=== PATIENT | female | born 1975 | race American Indian/Alaskan Native ===

== ENCOUNTER 2018-03-16 00:20 | Emergency (ER) | payer OTHER ==
[2018-03-16] MEDS ORDERED: ATIVAN ONE (00:37)
[2018-03-16] MEDS ORDERED: HALDOL ONE (00:37)
[2018-03-16] MEDS ORDERED: HALDOL IM PRN (00:37)
--- NOTE | 2018-03-16 00:38 | Emergency Department Report ---
ED General Adult HPI - General Chief complaint: Wound/Laceration Stated complaint: ETOH/HAND LAC Time Seen by Provider: 03/16/18 00:35 Source: patient, EMS (ems notes not available at time of chart dictation), RN notes reviewed Mode of arrival: Stretcher Limitations: Other (patient is intoxicated) - History of Present Illness Initial comments: This is a 42-year-old female who is unknown to this provider who is brought to the hospital by police and local EMS. As per verbal report from EMS, there was no preceding head trauma, patient got very drunk and began thinking about a family member. She punched her left hand through a glass window. The patient is intoxicated and cannot describe the nature of her symptoms, exacerbating or relieving factors or radiation. The patient did not respond to show of force, or verbal de-escalation techniques. Therefore, she required Haldol, Ativan for medical workup to exclude toxic overdose and metabolic cause of psychiatric symptoms. No additional information is available at this time. -: This evening Radiation: other (per hpi) Quality: other (per hpi) Consistency: other (per hpi) Improves with: other (per hpi) Worsens with: other (per hpi) Associated Symptoms: other (per hpi) - Related Data Allergies Allergy/AdvReac Type Severity Reaction Status Date / Time No Known Allergies Allergy Verified 03/16/18 00:46 ED Review of Systems ROS: Stated complaint: ETOH/HAND LAC Other details as noted in HPI Comment: Unobtainable due to pts medical conditions ED Past Medical Hx - Past Medical History Previous Medical History?: No - Social History Smoking Status: Unknown if ever smoked Substance Use Type: Alcohol ED Physical Exam - General Limitations: Other (intoxication) General appearance: alert, appears intoxicated, in distress, obese - Head Head exam: Present: atraumatic, normocephalic - Eye Eye exam: Present: normal appearance, PERRL, EOMI. Absent: nystagmus - ENT ENT exam: Present: normal exam, normal orophraynx, mucous membranes moist, normal external ear exam - Neck Neck exam: Present: normal inspection, full ROM - Respiratory Respiratory exam: Present: normal lung sounds bilaterally. Absent: respiratory distress - Cardiovascular Cardiovascular Exam: Present: regular rate, normal rhythm, normal heart sounds. Absent: bradycardia, tachycardia, irregular rhythm, systolic murmur, diastolic murmur, rubs, gallop - GI/Abdominal GI/Abdominal exam: Present: soft, normal bowel sounds. Absent: distended, tenderness, guarding, rebound, rigid, pulsatile mass - Extremities Exam Extremities exam: Present: normal capillary refill, other (2+ pulses noted in the bilateral upper, lower extremities. On the left second digit, at the dorsal aspect of the PIP joint, there is a 1.5 cm laceration noted. There is no obvious arterial bleeding, no foreign bodies noted.). Absent: normal inspection, tenderness, pedal edema, joint swelling, calf tenderness - Back Exam Back exam: Present: normal inspection, full ROM. Absent: tenderness, CVA tenderness (R), paraspinal tenderness, vertebral tenderness - Neurological Exam Neurological exam: Present: alert, other (5 out of 5 strength upper, lower extremities bilaterally. Sensation intact to light touch upper, lower extremities. There is no facial injury, the tongue is midline, extraocular movements are intact. Unable to assess sensation, or remainder of cranial nerves secondary to alcohol intoxication and patient's lack of cooperation.). Absent: motor sensory deficit - Psychiatric Psychiatric exam: Present: agitated, anxious, suicidal ideation - Skin Skin exam: Present: warm, dry, intact, normal color. Absent: rash - Laceration /Wound Repair Left Dorsal Finger Wound Location: upper extremity Wound Length (cm): 1 Wound's Depth, Shape: linear Wound Explored: clean Irrigated w/ Saline (ccs): 500 Anesthesia: 1% Lidocaine Volume Anesthetic (ccs): 4 Wound Debrided: minimal Suture Size/Type: 4:0 (monofilament) Number of Sutures: 5 Layer Closure?: No Sterile Dressing Applied?: Yes Progress: Laceration washed with sterile saline and adequate pressure. Wound is explored under bloodless field, no foreign bodies noted. 5 interrupted 4-0 monofilament sutures placed with good cosmesis and approximation. The patient tolerated the procedure well. ED Medical Decision Making - Lab Data Result diagrams: 03/16/18 00:57 03/16/18 00:57 Lab Results 03/16/18 03/16/18 03/16/18 Range/Units 00:57 00:57 00:57 WBC (4.5-11.0) K/mm3 RBC (3.65-5.03) M/mm3 Hgb (10.1-14.3) gm/dl Hct (30.3-42.9) % MCV (79-97) fl MCH (28-32) pg MCHC (30-34) % RDW (13.2-15.2) % Plt Count (140-440) K/mm3 Sodium 146 H (137-145) mmol/L Potassium 3.7 (3.6-5.0) mmol/L Chloride 107.2 H (98-107) mmol/L Carbon Dioxide 25 (22-30) mmol/L Anion Gap 18 mmol/L BUN 8 (7-17) mg/dL Creatinine 0.6 L (0.7-1.2) mg/dL Estimated GFR > 60 ml/min BUN/Creatinine Ratio 13 % Glucose 113 H (65-100) mg/dL Calcium 8.7 (8.4-10.2) mg/dL Total Creatine Kinase (30-135) units/L HCG, Quant (0-4) mIU/mL Salicylates < 0.3 L (2.8-20.0) mg/dL Acetaminophen < 5.0 L (10.0-30.0) ug/mL Plasma/Serum Alcohol (0-0.07) % 03/16/18 03/16/18 03/16/18 Range/Units 00:57 00:57 00:57 WBC 5.1 (4.5-11.0) K/mm3 RBC 3.79 (3.65-5.03) M/mm3 Hgb 10.6 (10.1-14.3) gm/dl Hct 32.4 (30.3-42.9) % MCV 86 (79-97) fl MCH 28 (28-32) pg MCHC 33 (30-34) % RDW 16.7 H (13.2-15.2) % Plt Count 335 (140-440) K/mm3 Sodium (137-145) mmol/L Potassium (3.6-5.0) mmol/L Chloride (98-107) mmol/L Carbon Dioxide (22-30) mmol/L Anion Gap mmol/L BUN (7-17) mg/dL Creatinine (0.7-1.2) mg/dL Estimated GFR ml/min BUN/Creatinine Ratio % Glucose (65-100) mg/dL Calcium (8.4-10.2) mg/dL Total Creatine Kinase 122 (30-135) units/L HCG, Quant (0-4) mIU/mL Salicylates (2.8-20.0) mg/dL Acetaminophen (10.0-30.0) ug/mL Plasma/Serum Alcohol 0.35 H (0-0.07) % 03/16/18 Range/Units 00:57 WBC (4.5-11.0) K/mm3 RBC (3.65-5.03) M/mm3 Hgb (10.1-14.3) gm/dl Hct (30.3-42.9) % MCV (79-97) fl MCH (28-32) pg MCHC (30-34) % RDW (13.2-15.2) % Plt Count (140-440) K/mm3 Sodium (137-145) mmol/L Potassium (3.6-5.0) mmol/L Chloride (98-107) mmol/L Carbon Dioxide (22-30) mmol/L Anion Gap mmol/L BUN (7-17) mg/dL Creatinine (0.7-1.2) mg/dL Estimated GFR ml/min BUN/Creatinine Ratio % Glucose (65-100) mg/dL Calcium (8.4-10.2) mg/dL Total Creatine Kinase (30-135) units/L HCG, Quant < 2 (0-4) mIU/mL Salicylates (2.8-20.0) mg/dL Acetaminophen (10.0-30.0) ug/mL Plasma/Serum Alcohol (0-0.07) % - Radiology Data Radiology results: report reviewed, image reviewed x-ray of the left hand demonstrates no foreign body. - Medical Decision Making Differential diagnosis, including but not limited to: Finger laceration, alcohol intoxication, mood disorder Assessment and plan: 42-year-old female with self injurious behavior who does not have decision-making capacity, no other evidence of overdose, placed on a 1013. Left distal finger splints is applied, patient should have sutures taken out in 4-5 days, psychiatric consultation has been requested, at this point in time, there is not appear to be any immediate medical contraindication to psychiatric admission, evaluation and consultation at this time. Critical care attestation.: If time is entered above; I have spent that time in minutes in the direct care of this critically ill patient, excluding procedure time. ED Disposition Clinical Impression: Alcohol intoxication, Finger laceration Disposition: DC/TX-65 PSY HOSP/PSY UNIT Is pt being admited?: No Does the pt Need Aspirin: No Condition: Good Referrals: PRIMARY CARE, [Primary Care Provider] - 3-5 Days
[2018-03-16] MEDS: ATIVAN IM PRN (00:40)
[2018-03-16] MEDS ORDERED: GEODON IM ONE (00:52)
[2018-03-16] MEDS ORDERED: NACL 0.9% 500 ML IR ONE (01:05)
[2018-03-16 01:09] LABS: Hematocrit 32.4 % (30.3-42.9); Hemoglobin 10.6 gm/dl (10.1-14.3); Mean Corpuscular HGB Conc 33 % (30-34); Mean Corpuscular Hemoglobin 28 pg (28-32); Mean Corpuscular Volume 86 fl (79-97); Platelet Count 335 K/mm3 (140-440); Red Blood Count 3.79 M/mm3 (3.65-5.03); Red Cell Distribution Width 16.7 % (13.2-15.2)
[2018-03-16 01:23] LABS: BUN/Creatinine Ratio 13; Blood Urea Nitrogen 8 mg/dL (7-17); Calcium 8.7 mg/dL (8.4-10.2); Hemolysis Index 0
[2018-03-16] MEDS ORDERED: ANTIBIOTIC OINT TP STA (01:25)
--- NOTE | 2018-03-16 02:30 | XRay Report ---
FINAL REPORT EXAM: XR HAND 2V LT HISTORY: left hand lac TECHNIQUE: Three views of the left hand were submitted. FINDINGS: There is no evidence of fracture or dislocation. There is no evidence of radiopaque foreign body. The wrist joint does not show any acute changes. IMPRESSION: No acute findings.
[2018-03-16] MEDS ORDERED: BOOSTRIX IM ONE ×2 (02:42→06:24)
[2018-03-16 14:50] LABS: Amphetamine Screen,Urine PRESUMPTIVE NEGATIVE; Benzodiazepines Screen,Urine PRESUMPTIVE NEGATIVE; Cannabinoid Screen,Urine PRESUMPTIVE NEGATIVE; Cocaine Screen,Urine PRESUMPTIVE NEGATIVE; Methadone Screen,Urine PRESUMPTIVE NEGATIVE; Opiate Screen,Urine PRESUMPTIVE NEGATIVE
[2018-03-16 14:57] LABS: Bacteria,Urine 1+ /HPF (Negative); Bilirubin,Urine NEG (Negative); Blood,Urine NEG (Negative); Color,Urine Yellow (Yellow); Mucus,Urine 2+ /HPF; Urobilinogen,Urine < 2.0 mg/dL (<2.0)
--- NOTE | 2018-03-16 23:49 | Consultation ---
History of Present Illness - Reason for Consult Consult date: 03/16/18 Reason for consult: psychiatric evaluation - Chief Complaint Chief complaint: "I drank too much." - History of Present Psychiatric Illness Ms. Freeman is a 42-year-old female seen for psychiatric evaluation in the ER. Per the record, she got very drunk and began thinking about a family member. She punched her left hand through a glass window. Her BAL was 0.35. She was agitated on arrival to the ED and was given Haldol and Ativan. She denies depression/anxiety/psychotic symptoms. She denies suicidal or homicidal ideation. She denies a history of edith. She reports drinking every weekend. She states she cannot just have 2. She reports being shaky and having sweats every weekend when she is coming off alcohol. She denies illicit substance use. 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 Medications and Allergies Allergies Allergy/AdvReac Type Severity Reaction Status Date / Time No Known Allergies Allergy Verified 03/16/18 00:46 Active Meds: Active Medications Haloperidol Lactate (Haldol) 5 mg IM Q6HR PRN PRN Reason: Agitation Last Admin: 03/16/18 01:00 Dose: 5 mg Lorazepam (Ativan) 2 mg IM Q4HR PRN PRN Reason: Agitation Last Admin: 03/16/18 00:40 Dose: 2 mg Past psychiatric history - Past Medical History Past Medical History: hypertension, other (on lisinopril) - past Psychiatric treatment and history Psych: Addictions psychiatric treatment history: denies a history of suicide attempts or hospitalizations - Social History Social history: lives with family Mental Status Exam - Vital signs Last Vital Signs Temp 97.9 F 03/16/18 08:30 Pulse 94 H 03/16/18 08:30 Resp 18 03/16/18 18:00 BP 153/79 03/16/18 08:30 Pulse Ox 96 03/16/18 18:00 - Exam Orientation: time, place, person Affect: normal Mood: anxious Thought content: other (no SI/HI) Thought Process: Intact Perceptions: none Speech: normal rate and pattern Concentration: focused Motor activity: normal Level of consciousness: alert Memory: Intact Sleep Symptoms: None (c/o night sweats) Appetite: decreased Interaction: cooperative Results Result Diagrams: 03/16/18 00:57 03/16/18 00:57 Abnormal lab results 03/16/18 03/16/18 03/16/18 Range/Units 00:57 00:57 00:57 RDW (13.2-15.2) % Sodium 146 H (137-145) mmol/L Chloride 107.2 H (98-107) mmol/L Creatinine 0.6 L (0.7-1.2) mg/dL Glucose 113 H (65-100) mg/dL U Epithel Cells (Auto) (0-13.0) /HPF Salicylates < 0.3 L (2.8-20.0) mg/dL Acetaminophen < 5.0 L (10.0-30.0) ug/mL Plasma/Serum Alcohol (0-0.07) % 03/16/18 03/16/18 03/16/18 Range/Units 00:57 00:57 14:23 RDW 16.7 H (13.2-15.2) % Sodium (137-145) mmol/L Chloride (98-107) mmol/L Creatinine (0.7-1.2) mg/dL Glucose (65-100) mg/dL U Epithel Cells (Auto) 14.0 H (0-13.0) /HPF Salicylates (2.8-20.0) mg/dL Acetaminophen (10.0-30.0) ug/mL Plasma/Serum Alcohol 0.35 H (0-0.07) % All other labs normal. Assessment and Plan Assessment and plan: Impression: intoxication on arrival to the ER with BAL of 0.35. Injury to finger was secondary to intoxication. alcohol use disorder, severe, binging type. currently in mild withdrawals. She reportedly has withdrawal symptoms every Saturday night, after binging on the weekend. She drank more than usual this weekend. No acute safety concerns were identified with the exception of concerns regarding withdrawal. Recommendation: She will be reevaluated in the am. If her presentation is the same regarding mental health, the recommendation would be to rescind the 1013. monitor her for worsening withdrawal symptoms. This was communicated with her nurse.
[2018-03-17] MEDS ORDERED: MOTRIN PO ONE (00:39)
[2018-03-17] MEDS: ATIVAN IM PRN (01:00)
[2018-03-17] MEDS ORDERED: VASELINE LIP THERAPY TP ONE (11:06)
--- NOTE | 2018-03-17 14:40 | Progress Note ---
Subjective - Reason for Consult Consult date: 03/17/18 Reason for consult: Psychiatry Follow-up - Chief Complaint Chief complaint: "I will get some help" 42-year-old female seen for psychiatric evaluation in the ER. Per the record, she got very drunk on admission to the ER. Today the patient is calm and cooperative during the assessment. She stated that her "main issue is drinking ( etoh) to much." She stated that lots of her family members drink (etoh). She stated that she is willing to attend AA and outpatient rehab services once discharge. She denies SI/HI's, AVH's, being depressed, and any past manic episodes in the past. Mental Status Exam - Vital signs Last Vital Signs Temp 97.1 F L 03/16/18 23:46 Pulse 87 03/16/18 23:46 Resp 18 03/17/18 13:12 BP 124/84 03/16/18 23:46 Pulse Ox 99 03/16/18 23:46 - Exam Narrative exam: MSE: Appearance: calm, cooperative Behavior: regular eye contact Speech: regualr rate and tone Mood: "okay" Affect: congruent to mood Thought Process: linear Thought Content: denies SI/HI's and AVH's Motor Activity: ambulatory Cognition: A/O x 3 Insight: appropriate Judgment: appropriate Assessment and Plan Impression: Alcohol Use DO. Alcohol Intoxication with a blood alcohol serum 0.35. Injury to finger was secondary to intoxication. No acute withdrawals noted (ETOH). Recommendation/Plan: Rescind 1013. The patient can follow up with [facility] for outpatient rehabs services. Also, the patient is willing to attend AA classes.
--- NOTE | 2018-03-17 15:56 | Emergency Department Report ---
Blank Doc - Documentation Documentation: Patient evaluated at 3:55 PM after being evaluated by psychiatry with this suggestion being the patient be discharged home with outpatient follow-up. The patient tells me she is not homicidal suicidal. Patient also denies any auditory or visual hallucinations. 1013 was signed by psychiatry and the patient will follow up with outpatient services provided
[2018-03-17 16:23] VITALS: BP 175/107
== END 2018-03-17 16:23 ==
LOC: ED 00:20 → EEVIPCON 00:20 → ED 03-17 16:23
DX: S61.211A Laceration without foreign body of left index finger without damage to nail, initial encounter (principal); F10.129 Alcohol abuse with intoxication, unspecified; Z79.899 Other long term (current) drug therapy; W25.XXXA Contact with sharp glass, initial encounter; Y93.89 Activity, other specified; Y92.89 Other specified places as the place of occurrence of the external cause; Y99.8 Other external cause status
CPT/HCPCS: 12001; 36415; 73120; 80048; 80307; 81001; 82550; 84702; 85027; 90471; 90715; 96372; 99285; G0480; J1630; J2060; J3486; 80320

== ENCOUNTER 2018-03-24 18:55 | Emergency (ER) | payer SELFPAY ==
[2018-03-24 19:06] VITALS: BP 137/82
--- NOTE | 2018-03-24 19:18 | Emergency Department Report ---
Suture/Staple Removal - [facility] Chief Complaint: Laceration/Recheck/Suture Stated Complaint: STITCH REMOVAL Time Seen by Provider: 03/24/18 19:12 When Sutures or Emma Placed: 8-10 Days Ago Wound Location: right index finger ED Review of Systems ROS: Stated complaint: STITCH REMOVAL Other details as noted in HPI Constitutional: denies: chills, fever Eyes: denies: eye pain, eye discharge, vision change ENT: denies: ear pain, throat pain Respiratory: denies: cough, shortness of breath, wheezing Cardiovascular: denies: chest pain, palpitations Endocrine: no symptoms reported Gastrointestinal: denies: abdominal pain, nausea, diarrhea Genitourinary: denies: urgency, dysuria, discharge Musculoskeletal: denies: back pain, joint swelling, arthralgia Skin: denies: rash, lesions Neurological: denies: headache, weakness, paresthesias Psychiatric: denies: anxiety, depression Hematological/Lymphatic: denies: easy bleeding, easy bruising ED Past Medical Hx - Past Medical History Previous Medical History?: No - Surgical History Past Surgical History?: No - Social History Smoking Status: Current Every Day Smoker Substance Use Type: None - Medications Home Medications: Home Medications Medication Instructions Recorded Confirmed Last Taken Type Ibuprofen [Motrin] 600 mg PO Q8H PRN #30 tablet 03/24/18 Unknown Rx Suture Removal Exam - Exam General: Vital signs noted. No distress. Alert and acting appropriately. GENERAL: The patient is a well-developed, well-nourished in no apparent distress. Patient is alert and acting appropriately for age. Alert and oriented 3, no apparent distress, normal gait, atraumatic. HEENT: Head is normocephalic and atraumatic. PERRL, Extraocular muscles are intact. Pupils are equal, round, and reactive to light and accommodation. Nares appeared normal. Mouth is well hydrated and without lesions. Mucous membranes are moist. Posterior pharynx clear of any exudate or lesions. Mouth is well hydrated and without lesions. Tonsils not erythematous or swollen. Uvula midline. Tongue elevated. Mucous members are moist. Posterior pharynx clear, no exudate or lesions. Patent airways. NECK: Supple. No carotid bruits. No lymphadenopathy or thyromegaly.nontender. No meningitic signs are noted. LUNGS: Clear to auscultation. Non labor breathing. No intercostal retractions. Symmetrical with respiration, no wheezing, no rales, or crackles. HEART: Regular rate and rhythm without murmur, rubs or gallops. No reproducible. S1, S2 present, regular rate and rhythm without murmur, no rubs, no gallops. ABDOMEN: Soft, nontender, and nondistended. Positive bowel sounds. No hepatosplenomegaly was noted. No guarding or rebound tenderness, negative epigastric bruit. Negative psoas sign, negative quezada sign, negative McBurneys sign EXTREMITIES: Without any cyanosis, clubbing, rash, lesions or edema. Peripheral pulses intact. Capillary refill less than 2 seconds. Full range of motion bilaterally. NEUROLOGIC: Cranial nerves II through XII are grossly intact. Alert and oriented x 3. Normal gait. Symmetrical strength and sensation. Reflexes 2+ throughout. Cerebellar testing normal. GCS score of 15. PSYCHIATRIC: Normal affect with no suicidal or homicidal ideations. Skin: well healing 5 suture in right index fingber. No deschince. No cellulitis. Wound: No Pathologic Erythema, No Tenderness, No Drainage, No Pus, No Wound Dehiscence Other Systems: All other systems reviewed and are unremarkable. ED Course Vital Signs 03/24/18 19:05 Temperature 97.8 F Pulse Rate 78 Respiratory 16 Rate Blood Pressure 137/82 O2 Sat by Pulse 99 Oximetry - Reevaluation(s) Reevaluation #1: 03/24/18 19:16 Patient is speaking in full sentences with no signs of distress noted. ED Recheck MDM - Medical Decision Making 41-year-old female that presents with suture removal. Total of 5 sutures has been removed and patient tolerated well. Patient was instructed to continue proper wound care. Patient was referred to Follow-up with a primary care doctor in 3-5 days or if symptoms worsen and continue return to emergency room as soon as possible. At time of discharge, the patient does not seem toxic or ill in appearance. No acute signs of distress noted. Patient agrees to discharge treatment plan of care. No further questions noted by the patient. Critical care attestation.: If time is entered above; I have spent that time in minutes in the direct care of this critically ill patient, excluding procedure time. ED Disposition Clinical Impression: Visit for suture removal Disposition: DC-01 TO HOME OR SELFCARE Is pt being admited?: No Does the pt Need Aspirin: No Condition: Stable Instructions: Suture Removal (ED) Additional Instructions: Follow-up with a primary care doctor in 3-5 days or if symptoms worsen and continue return to emergency room as soon as possible. Prescriptions: Ibuprofen [Motrin] 600 mg PO Q8H PRN #30 tablet PRN Reason: Pain Referrals: PRIMARY CARE, [Referring] - 3-5 Days [facility] [Outside] - 3-5 Days ADRYAN MORENO MD [Staff Physician] - 3-5 Days Forms: Work/School Release Form(ED)
== END 2018-03-24 19:25 | disposition home or self-care (01) ==
LOC: ED 18:55
DX: Z48.01 Encounter for change or removal of surgical wound dressing (principal); S61.210D Laceration without foreign body of right index finger without damage to nail, subsequent encounter

== ENCOUNTER 2018-06-25 05:45 | Emergency (ER) | payer OTHER ==
[2018-06-25] MEDS ORDERED: ROBITUSSIN AC PO NR (08:00)
[2018-06-25] MEDS ORDERED: MOTRIN PO ONE (08:00)
--- NOTE | 2018-06-25 08:08 | Emergency Department Report ---
HPI - General Chief Complaint: Upper Respiratory Infection Time Seen by Provider: 06/25/18 07:48 - HPI HPI: Patient is a 42-year-old female with no prior medical conditions presents to ED complaining of yellow mucus productive cough, throat pain and body aches 2 days. Patient states that she has been experiencing body aches and throat pain. Patient states that her pain is worse this is scratchy and hurts to swallow. He states she's been taking NyQuil and Mucinex with no relief. She denies fever/chills/nausea vomiting/abdominal pain/chest pain/shortness of breath or dizziness. ED Past Medical Hx - Past Medical History Previous Medical History?: No - Surgical History Past Surgical History?: No - Social History Smoking Status: Current Some Day Smoker Substance Use Type: None - Medications Home Medications: Home Medications Medication Instructions Recorded Confirmed Last Taken Type Ibuprofen [Motrin] 600 mg PO Q8H PRN #30 tablet 03/24/18 Unknown Rx Ibuprofen [Motrin 800 MG tab] 800 mg PO TID #30 tablet 06/25/18 Unknown Rx Nystas/Diphen/Xyl Visc/Mylanta 30 ml MM TID #1 bottle 06/25/18 Unknown Rx [Magic Mouthwash] guaiFENesin/CODEINE [Robitussin AC] 5 ml PO TID #50 ml 06/25/18 Unknown Rx ED Review of Systems ROS: Stated complaint: MARY CONGESTION COUGH SORE THROAT Other details as noted in HPI Constitutional: denies: chills, fever Eyes: denies: eye pain, eye discharge, vision change ENT: congestion. denies: ear pain, throat pain, dental pain, hearing loss Respiratory: cough. denies: shortness of breath, wheezing Cardiovascular: denies: chest pain, palpitations Endocrine: no symptoms reported Gastrointestinal: denies: abdominal pain, nausea, diarrhea Genitourinary: denies: urgency, dysuria, frequency, hematuria, discharge Musculoskeletal: denies: back pain, joint swelling, arthralgia Skin: denies: rash, lesions, pruritus Neurological: denies: headache, weakness, paresthesias Psychiatric: denies: anxiety, depression Hematological/Lymphatic: denies: easy bleeding, easy bruising Physical Exam - Physical Exam Vital Signs: Vital Signs 06/25/18 06:22 Temperature 98.7 F Pulse Rate 97 H Blood Pressure 127/79 O2 Sat by Pulse 99 Oximetry Physical Exam: GENERAL: Alert and oriented x3, no apparent distress, Normal Gait, atraumatic. HEAD: Head is normocephalic and a-traumatic. EYES: Extra ocular muscles are intact. EARS: symetrical, atraumatic, non tender, ear canal clear and moderate cerumen, tympanic membrance non inflamed. gross auditory nml bilaterally. NOSE: Nose symetrical, Nontender,Nares appeared normal. MOUTH:Mouth is well hydrated and without lesions. Tonsils mildly erythematous but not swollen, Uvula midline, Tongue not elevated. Mucous membranes are moist. Posterior pharynx clear, no exudate or lesions. Patent airways. NECK: Supple. Non edematous, No carotid bruits. Anterior cervical lymphadenopathy LUNGS: Symetrical with respiration, No wheezing, no rales or crackles, CTAB. HEART: S1, S2 present, regular rate and rhythm without murmur, no rubs, no gallops. Non tender to palpation BACK: Full range of motion, no spinal tenderness, nontender to palpation. SKIN: Warm and dry, No lesions, No ulceration or induration present. ED Course Vital Signs 06/25/18 06:22 Temperature 98.7 F Pulse Rate 97 H Blood Pressure 127/79 O2 Sat by Pulse 99 Oximetry ED Medical Decision Making - Radiology Data Radiology results: report reviewed, image reviewed XRay Report Signed Patient: JOAQUIN LEONARD MR#: [id number] : 1975 Acct:[id number] Age/Sex: 42 / F ADM Date: 06/25/18 Loc: ED Attending Dr: Ordering Physician: IZABELA SOUTH Date of Service: 06/25/18 Procedure(s): XR chest routine 2V Accession Number(s): [id number] cc: IZABELA SOUTH Fluoro Time In Minutes: ROUTINE CHEST, TWO VIEWS: HISTORY: Productive cough. The trachea, heart, mediastinal contour, lung cotter and bony thorax are unremarkable. IMPRESSION: Unremarkable chest x-ray. Transcribed By: TTR Dictated By: ALEM MRECER JR, MD Electronically Authenticated By: ALEM MERCER JR, MD Signed Date/Time: 06/25/18 0822 - Medical Decision Making 42-year-old female presents with strep pharyngitis. ED course: Rapid strep tests ordered rapid strep test positive Patient received 1 dose of Motrin, 1.2 million units of penicillin, Chest x-ray shows no abnormalities Vital signs stable patient is in no acute or respiratory distress. Discussed findings with patient about the positive strep. Discussed treatment in ED with patient Discussed the patient that strep throat is contagious and to limit sharing spoons and such. Discussed with patient follow-up with primary care physician. Patient verbally states he understands and will comply to follow-up. Critical care attestation.: If time is entered above; I have spent that time in minutes in the direct care of this critically ill patient, excluding procedure time. ED Disposition Clinical Impression: Strep pharyngitis URI (upper respiratory infection) Qualifiers: URI type: unspecified URI Qualified Code(s): J06.9 - Acute upper respiratory infection, unspecified Disposition: TO HOME OR SELFCARE Is pt being admited?: No Does the pt Need Aspirin: No Condition: Stable Instructions: Pharyngitis (ED), Strep Throat (ED), Upper Respiratory Infection (ED), Cold Symptoms (ED) Additional Instructions: Make sure to follow up with the primary care physician as discussed. Take all your medications as you've been prescribed. If you have any worsening symptoms or develop new symptoms please return to ED immediately. Prescriptions: guaiFENesin/CODEINE [Robitussin AC] 5 ml PO TID #50 ml Ibuprofen [Motrin 800 MG tab] 800 mg PO TID #30 tablet Nystas/Diphen/Xyl Visc/Mylanta [Magic Mouthwash] 30 ml MM TID #1 bottle Referrals: PRIMARY MD WILLIAM [Primary Care Provider] - 3-5 Days NOE BRAY MD [Referring] - 3-5 Days VINCENZO GONGORA MD [Staff Physician] - 3-5 Days Forms: Work/School Release Form(ED) Time of Disposition: 09:07
--- NOTE | 2018-06-25 08:23 | XRay Report ---
ROUTINE CHEST, TWO VIEWS: HISTORY: Productive cough. The trachea, heart, mediastinal contour, lung cotter and bony thorax are unremarkable. IMPRESSION: Unremarkable chest x-ray.
[2018-06-25] MEDS ORDERED: BICILLIN L-A IM ONE (09:05)
[2018-06-25 09:39] VITALS: BP 130/81
== END 2018-06-25 09:37 | disposition home or self-care (01) ==
LOC: ED 05:45
DX: J02.0 Streptococcal pharyngitis (principal); J06.9 Acute upper respiratory infection, unspecified; F17.200 Nicotine dependence, unspecified, uncomplicated
CPT/HCPCS: 71046; 87430; 96372; 99284; J0561